=== PATIENT | male | born 1990 | race Caucasian/White ===

== ENCOUNTER 2024-10-08 13:30 | Emergency (ER) | payer BC, OTHER ==
[~2024-10-08] VITALS: Ht 177.8 cm; Wt 86.4 kg
[2024-10-08] MEDS: LORazepam 2 mg/ml vial IV ONE (13:57)
[2024-10-08] MEDS: normal saline 1000ML IV soln IV ONE (13:57)
[2024-10-08 14:19] LABS: BASOPHILS # (AUTO) 0.1 X10'3 (0-0.2); BASOPHILS % (AUTO) 0.8 % (0-1); EOSINOPHILS % (AUTO) 0 % (0-6); HEMATOCRIT 46.1 % (42.0-52.0); LYMPHOCYTES # (AUTO) 0.5 X10'3 (1.1-4.8); LYMPHOCYTES % (AUTO) 6.9 % (21-51); MEAN CORPUSCULAR HEMOGLOBIN 36.3 PG (27.0-31.0); MEAN CORPUSCULAR HGB CONC 34.7 g/dL (33.0-36.5); MEAN CORPUSCULAR VOLUME 104.6 FL (78-98); MEAN PLATELET VOLUME 9.3 FL (7.4-10.4); MONOCYTES # (AUTO) 0.5 X10'3 (0-0.9); NEUTROPHILS # (AUTO) 6.5 X10'3 (1.8-7.7); NEUTROPHILS % (AUTO) 85.3 % (42-75); PLATELET COUNT 139 X10'3 (140-440); RED BLOOD COUNT 4.41 X10'6 (4.70-6.10); RED CELL DISTRIBUTION WIDTH 14.8 % (11.5-14.5); WHITE BLOOD COUNT 7.7 X10'3 (4.5-11.0)
[2024-10-08 14:33] LABS: ALANINE AMINOTRANSFERASE 85 U/L (12-78); ALBUMIN/GLOBULIN RATIO 1.3 (1.1-1.5); ALKALINE PHOSPHATASE 95 IU/L (46-116); ANION GAP 18 (8-16); ASPARTATE AMINO TRANSFERASE 205 U/L (10-37); BILIRUBIN,DIRECT 0.6 MG/DL (0-0.3); BILIRUBIN,TOTAL 1.5 MG/DL (0.1-1.0); BLOOD UREA NITROGEN 12 MG/DL (7-18); BUN/CREATININE RATIO 12.4 (10.0-20.0); CHLORIDE 97 MMOL/L (99-107); CREATININE 0.97 MG/DL (0.60-1.10); ETHANOL < 10 MG/DL (<10); GLUCOSE 136 MG/DL (70-104); MAGNESIUM 1.6 MG/DL (1.5-2.4); SODIUM 142 MMOL/L (135-145); TOTAL CARBON DIOXIDE 26.9 MMOL/L (24-32); TOTAL PROTEIN 8.9 G/DL (6.4-8.2); eCRCL 111 ML/MIN; eGFR 89 ML/MIN
[2024-10-08 14:40] LABS: COLOR,URINE AMBER (Yellow); UA COLLECTION TYPE CLN CATCH MIDSTREAM
[2024-10-08 14:41] LABS: CLARITY,URINE SLIGHTLY CLOUDY (Clear)
[2024-10-08 14:42] LABS: BACTERIA,URINE FEW /HPF (Neg); FINE GRANULAR CAST 0-3 /LPF (NEGATIVE); MUCUS STRANDS MANY /LPF (Neg); RBC,URINE 0-2 /HPF (0-2); SQUAMOUS EPITHELIAL CELL,UR FEW /LPF (FEW)
[2024-10-08] MEDS: thiamine 100mg/ml 2ml inj. IM ONE (14:53)
[2024-10-08] MEDS: multivitamins, therapeutics tablet PO ONE (14:53)
[2024-10-08 14:55] LABS: URINE AMPHETAMINE SCREEN NEGATIVE (Neg); URINE BARBITUATE SCREEN NEGATIVE (Neg); URINE BENZODIAZEPINES SCREEN NEGATIVE (Neg); URINE CANNABINOID SCREEN NEGATIVE (Neg); URINE COCAINE SCREEN NEGATIVE (Neg); URINE METHADONE SCREEN NEGATIVE (Neg); URINE OPIATE SCREEN NEGATIVE (Neg); URINE PHENCYCLIDINE SCREEN NEGATIVE (Neg)
[2024-10-08] MEDS: folic acid 1mg/0.2ml inj IV ONE (15:20)
[2024-10-08] MEDS: diazepam inj 5 MG/ML inj. IV ONE (16:00)
[2024-10-08] MEDS: magnesium sulf-water 2g/50mL 50 ML IV ONE (16:02)
[2024-10-08 16:41] VITALS: PULSE 84
[2024-10-08] MEDS ORDERED: NALT50TA5 PO (17:32)
[2024-10-08] MEDS ORDERED: GABA300T26 PO (17:32)
[2024-10-08 17:50] VITALS: BP 128/85; RESP 18; O2SAT 96
== END 2024-10-08 17:59 | disposition home or self-care (01) ==
LOC: ER 13:31
DX: F10.239 Alcohol dependence with withdrawal, unspecified (principal); G47.00 Insomnia, unspecified; Z79.899 Other long term (current) drug therapy; Y90.9 Presence of alcohol in blood, level not specified
CPT/HCPCS: 36415; 80048; 80076; 80305; 80320; 81001; 83735; 85025; 96361; 96365; 96372; 96375; 99285; J2060; J3360; J3411; J3490; J7030